=== PATIENT | female | born 1970 | race Caucasian/White ===

== ENCOUNTER 2025-02-07 10:10 | Emergency (ER) | payer MEDICAID, OTHER ==
[~2025-02-07] VITALS: Ht 162.6 cm; Wt 91.0 kg
[2025-02-07 10:12] VITALS: BP 156/108; PULSE 91; RESP 18; TEMP 97.1; O2SAT 95
== END 2025-02-07 12:35 | disposition left against medical advice (07) ==
LOC: ER 10:10
DX: M79.641 Pain in right hand (principal); Z79.899 Other long term (current) drug therapy

== ENCOUNTER 2025-02-12 19:22 | Emergency (ER) | payer MEDICAID ==
[~2025-02-12] VITALS: Ht 162.6 cm; Wt 92.1 kg
[2025-02-12 19:25] VITALS: BP 152/85; PULSE 82; RESP 18; TEMP 98.8; O2SAT 95
--- NOTE | 2025-02-12 20:20 | ED.PDOC ---
Musculoskeletal HPI Comments This is a 54 year old female presenting to the ED with chief complaint of wrist pain and swelling. Patient reports that she has been experiencing right sided wrist pain and swelling that radiates up to her forearm for the past 2 weeks. Patient relays that she had received antibiotics from urgent care due to suspected cellulitis, but no relief had been noted since then. Patient states that she has been homeless in her car for the past month. Patient denies any injury, fall, numbness, weakness, or tingling. Chief Complaint: Upper Extremity Time Seen by MD: 20:17 Reviewed Notes: Nurses Notes, Medications, Allergies Allergies: Coded Allergies: Lisinopril (Verified Allergy, Unknown, 02/07/25) Penicillins (Verified Allergy, Unknown, 02/07/25) Uncoded Allergies: TDAP (Allergy, Unknown, 02/07/25) Information Source: Patient Mode of Arrival: Ambulatory Location: Right Extremity Location: Wrist Timing: Weeks Prehospital treatment: None Severity: Moderate Able to Move Extremity: Yes Pain: Moderate Mechanism: Spontaneous Circumstances: Spontaneous Onset of Symptoms: Spontaneous Symptoms: Swelling, Pain DVT Risk Factors: NONE Past Medical History PAST MEDICAL HISTORY: Denies Surgical History: Denies all surgeries 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 History Family History Family History: Reviewed,noncontributory to illness Social History Smoker: Non-Smoker Alcohol: Denies ETOH Use Drugs: Denies Drug Use Lives In: Home Constitutional: denies: chills, diaphoresis, fatigue, fever, malaise, sweats, weakness, others EENTM: denies: blurred vision, double vision, ear bleeding, ear discharge, ear drainage, ear pain, ear ringing, eye pain, eye redness, hearing loss, mouth pain, mouth swelling, nasal discharge, nose bleeding, nose congestion, nose pain, photophobia, tearing, throat pain, throat swelling, voice changes, others Respiratory: denies: cough, hemoptysis, orthopnea, SOB at rest, shortness of breath, SOB with excertion, stridor, wheezing, others Cardiovascular: denies: chest pain, dizzy spells, diaphoresis, Dyspnea on exertion, edema, irregular heart beat, left arm pain, lightheadedness, palpitations, PND, syncope, others Gastrointestinal: denies: abdomen distended, abdominal pain, blood streaked bowels, constipated, diarrhea, dysphagia, difficulty swallowing, hematemesis, melena, nausea, poor appetite, poor fluid intake, rectal bleeding, rectal pain, vomiting, others Genitourinary: denies: abnormal vagina bleeding, burning, dyspareunia, dysuria, flank pain, frequency, hematuria, incontinence, pain, , vagina discharge, urgency, others Neurological: denies: dizziness, fainting, headache, left sided numbness, left sided weakness, numbness, paresthesia, pre-existing deficit, right sided numbness, right sided weakness, seizure, speech problems, tingling, tremors, weakness, others Musculoskeletal: reports: others (Rt wrist pain and swelling); denies: back pain, gout, joint pain, joint swelling, muscle pain, muscle stiffness, neck pain Integumetry: denies: bruises, change in color, change in hair/nails, dryness, laceration, lesions, lumps, rash, wounds, others Allergic/Immunocompromised: denies: Difficulty Healing, Frequent Infections, Hives, Itching, others Hematologic/Lymphatic: denies: anemia, blood clots, easy bleeding, easy bruising, swollen glands, others Endocrine: denies: excessive hunger, excessive sweating, excessive thirst, excessive urination, flushing, intolerance to cold, intolerance to heat, unexplained weight gain, unexplained weight loss, others Psychiatric: denies: anxiety, bipolar disorder, depression, hopeless, panic disorder, schizophrenia, sleepless, suicidal, others All Other Systems: Reviewed and Negative Physical Exam General Appearance: No Apparent Distress, Normal HEENT: Normal ENT Inspection, Pharynx Normal, TMs Normal Neck: Full Range of Motion, Non-Tender, Normal, Normal Inspection Respiratory: Chest Non-Tender, Lungs Clear, No Accessory Muscle Use, No Respiratory Distress, Normal Breath Sounds Cardiovascular: No Edema, No JVD, No Murmur, No Gallop, Normal Peripheral Pulses, Regular Rate/Rhythm Breast Exam: Deferred Gastrointestinal: No Organomegaly, Non Tender, No Pulsatile Mass, Normal Bowel Sounds, Soft Genitalia: Deferred Pelvic: Deferred Rectal: Deferred Extremities: No calf tenderness, Normal capillary refill, No pedal edema, Other (Swelling to top of right wrist with limited ROM due to pain.) Musculoskeletal : Apperance: Normal Neurologic: Alert, pie topper II-XII nml as Tested, No Motor Deficits, Normal Affect, Normal Mood, No Sensory Deficits Cerebellar Function: Normal Reflexes: Normal Skin: Dry, Normal Color, Warm Lymphatic: No Adenopathy Was a procedure done? Was a procedure done?: No Differential Diagnosis EXT Differential Diagnosis: Fracture, Sprain, Dislocation X-Ray, Labs, Meds, VS Vital Signs Date Time Temp Pulse Resp B/P (MAP) Pulse Ox O2 Delivery O2 Flow Rate FiO2 02/12/25 19:25 98.8 82 18 152/85 95 98.8 X-Ray, Labs, Meds, VS Comment Imaging was reviewed by this provider, there is no obvious pathological or acute disease process. Pending radiology review Labs were reviewed by this provider, no abnormalities Vital signs reviewed by this provider, clinically stable Time of 1ST Reevaluation: 21:15 Reevaluation 1ST: Unchanged Patient Education/Counseling: Diagnosis, Treatment, Need For Follow Up (Follow up with PCP for next available appointment. Return to the emergency department if symptoms worsen.) Family Education/Counseling: No Family Present Departure 1 Departure Time of Disposition: 21:27 Impression: Primary Impression: Arthritis of right wrist Disposition: HOME / SELF CARE / HOMELESS Condition: Stable e-Prescriptions Diclofenac Potassium (Diclofenac Potassium) 50 Mg Tab 1 TAB PO BID, #60 TAB 1 Refill Prov: VENITA TAI 02/12/25 Methylprednisolone (Medrol Dosepak) 4 Mg Carlos 4 MG PO UD, #21 TAB UAD Prov: VENITA TAI 02/12/25 Discharged With: Self Critical Care Note Critical Care Time?: No Stability Stability form required: No Heart Score Heart Score: Heart Score Response (Comments) Value History N/A 0 EKG N/A 0 Age N/A 0 Risk Factors N/A 0 Troponin N/A 0 Total 0 I personally scribed for VENITA TAI ([email or web address]) on 02/12/25 at 20:20. Electronically submitted by Bogdan Sorto ([email or web address]). VENITA TAI Feb 12, 2025 20:20
[2025-02-12] MEDS ORDERED: methylPREDNISolone SOD SUCC 125 MG/2 ML VL IM ONE (20:45)
[2025-02-12] MEDS ORDERED: KETOROLAC TROMETH 30 MG/ML 1ML VIAL IM ONE (20:45)
--- NOTE | 2025-02-12 21:15 | DVH ---
CLINICAL HISTORY: Right wrist pain TECHNIQUE: 3 views of the right wrist were obtained. WID: COMPARISON: None FINDINGS: Normal mineralization and alignment. Mild 1st CMC joint osteoarthritis. Mild triscaphe joint osteoarthritis. There is a cortical offset in the dorsal aspect of the distal radius on lateral projection. Mild soft tissue swelling about the distal right forearm. IMPRESSION: 1. Cortical offset in the dorsal aspect of the distal radius seen on lateral projection. 2. Mild soft tissue swelling about the distal right forearm. 3. Mild 1st CMC joint osteoarthritis. Mild triscaphe joint osteoarthritis.
[2025-02-12] MEDS ORDERED: DICL50TA2 PO (21:27)
[2025-02-12] MEDS ORDERED: METH4PAK PO (21:27)
== END 2025-02-12 21:32 | disposition home or self-care (01) ==
LOC: ER 19:22
DX: M19.031 Primary osteoarthritis, right wrist (principal); Z88.8 Allergy status to other drugs, medicaments and biological substances; Z88.7 Allergy status to serum and vaccine; Z88.0 Allergy status to penicillin
CPT/HCPCS: 73110; J1885

== ENCOUNTER 2025-02-14 09:37 | Emergency (ER) | payer MEDICAID ==
[~2025-02-14] VITALS: Ht 162.6 cm; Wt 92.4 kg
[~2025-02-14 09:37] MED LIST: DICL50TA2 PO; METH4PAK PO
[2025-02-14 09:39] VITALS: BP 160/96; PULSE 72; RESP 18; TEMP 97.9; O2SAT 96
[2025-02-14] MEDS ORDERED: METH4PAK PO (11:01)
[2025-02-14] MEDS ORDERED: TRAM-626 PO (11:02)
--- NOTE | 2025-02-14 11:02 | ED.PDOC ---
Musculoskeletal HPI Comments A 54 YEAR OLD FEMALE PRESENTS TO THE ED WITH COMPLAINT OF RIGHT WRIST PAIN. PATIENT REPORTS THAT SHE HAS BEEN EXPERIENCING RIGHT WRIST PAIN WITH ASSOCIATED SWELLING AND WARMTH FOR THE PAST 2 WEEKS. PATIENT RELAYS THAT SHE IS UNSURE IF SHE INJURED HER RIGHT WRIST. 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 PATIENT DENIES FEVER, CHILLS, SHORTNESS OF BREATH, CHEST PAIN, ABDOMINAL PAIN, NAUSEA, VOMITING, HEADACHE, OR OTHER COMPLAINTS. NO OTHER SYMPTOMS OR MODIFYING FACTORS AT THIS TIME. PATIENT IS ALERT, ORIENTED X 4, AND HAS STEADY GAIT. Chief Complaint: Upper Extremity Time Seen by MD: 10:59 Reviewed Notes: Nurses Notes, Medications, Allergies Allergies: Coded Allergies: Lisinopril (Verified Allergy, Unknown, 02/07/25) Penicillins (Verified Allergy, Unknown, 02/07/25) Uncoded Allergies: TDAP (Allergy, Unknown, 02/07/25) Home Meds Active Scripts Tramadol HCl (Tramadol HCl) 50 Mg Tab, 50 MG PO TID, #20 TAB Prov:ROB HARRIS 02/14/25 Methylprednisolone (Medrol Dosepak) 4 Mg Carlos, 4 MG PO UD, #21 TAB UAD Prov:ROB HARRIS 02/14/25 Diclofenac Potassium (Diclofenac Potassium) 50 Mg Tab, 1 TAB PO BID, #60 TAB 1 Refill Prov:VENITA TAI 02/12/25 Information Source: Patient Mode of Arrival: Ambulatory Location: Right Extremity Location: Hand, Wrist Timing: Weeks Prehospital treatment: None Severity: Moderate Able to Move Extremity: Yes Bear Weight: Fully Pain: Moderate Mechanism: Spontaneous Circumstances: Spontaneous Onset of Symptoms: Spontaneous Symptoms: Swelling, Pain, Warmth DVT Risk Factors: NONE Last Tetanus: Unknown Associated signs and symptoms: Wrist pain Past Medical History PAST MEDICAL HISTORY: DM Past Medical History (Other): BIPOLAR Surgical History: Denies all surgeries RADAR REPAIRER History: No Pertinent RADAR REPAIRER History Family History Family History: Reviewed,noncontributory to illness Social History Smoker: Non-Smoker Alcohol: Denies ETOH Use Drugs: Denies Drug Use Lives In: Homeless Constitutional: denies: chills, diaphoresis, fatigue, fever, malaise, sweats, weakness, others EENTM: denies: blurred vision, double vision, ear bleeding, ear discharge, ear drainage, ear pain, ear ringing, eye pain, eye redness, hearing loss, mouth pain, mouth swelling, nasal discharge, nose bleeding, nose congestion, nose pain, photophobia, tearing, throat pain, throat swelling, voice changes, others Respiratory: denies: cough, hemoptysis, orthopnea, SOB at rest, shortness of breath, SOB with excertion, stridor, wheezing, others Cardiovascular: denies: chest pain, dizzy spells, diaphoresis, Dyspnea on exertion, edema, irregular heart beat, left arm pain, lightheadedness, palpitations, PND, syncope, others Gastrointestinal: denies: abdomen distended, abdominal pain, blood streaked bowels, constipated, diarrhea, dysphagia, difficulty swallowing, hematemesis, melena, nausea, poor appetite, poor fluid intake, rectal bleeding, rectal pain, vomiting, others Genitourinary: denies: abnormal vagina bleeding, burning, dyspareunia, dysuria, flank pain, frequency, hematuria, incontinence, pain, , vagina discharge, urgency, others Neurological: denies: dizziness, fainting, headache, left sided numbness, left sided weakness, numbness, paresthesia, pre-existing deficit, right sided numbness, right sided weakness, seizure, speech problems, tingling, tremors, weakness, others Musculoskeletal: reports: joint pain, joint swelling, others (RIGHT WRIST PAIN); denies: back pain, gout, muscle pain, muscle stiffness, neck pain Integumetry: denies: bruises, change in color, change in hair/nails, dryness, laceration, lesions, lumps, rash, wounds, others Allergic/Immunocompromised: denies: Difficulty Healing, Frequent Infections, Hives, Itching, others Hematologic/Lymphatic: denies: anemia, blood clots, easy bleeding, easy bruising, swollen glands, others Endocrine: denies: excessive hunger, excessive sweating, excessive thirst, excessive urination, flushing, intolerance to cold, intolerance to heat, unexplained weight gain, unexplained weight loss, others Psychiatric: denies: anxiety, bipolar disorder, depression, hopeless, panic disorder, schizophrenia, sleepless, suicidal, others All Other Systems: Reviewed and Negative Physical Exam General Appearance: Mild Distress, Obese HEENT: Normal ENT Inspection, PERRL/EOMI, Pharynx Normal, TMs Normal Neck: Full Range of Motion, Non-Tender, Normal, Normal Inspection Respiratory: Chest Non-Tender, Lungs Clear, No Accessory Muscle Use, No Respiratory Distress, Normal Breath Sounds Cardiovascular: No Edema, No JVD, No Murmur, No Gallop, Normal Peripheral Pulses, Regular Rate/Rhythm Breast Exam: Deferred Gastrointestinal: No Organomegaly, Non Tender, No Pulsatile Mass, Normal Bowel Sounds, Soft Genitalia: Deferred Pelvic: Deferred Rectal: Deferred Extremities: No calf tenderness, Normal capillary refill, Normal range of motion, No pedal edema, Swelling (TENDERNESS AND MILD SWELLING ON RIGHT DORSAL WRIST. ), Tender (WITH TWO SMALL GANGLION CYST. ) Musculoskeletal : Apperance: Normal Neurologic: Alert, belt splicer II-XII nml as Tested, No Motor Deficits, Normal Affect, Normal Mood, No Sensory Deficits Cerebellar Function: Normal Reflexes: Normal Skin: Dry, Normal Color, Warm Peripheral Pulses: 2+ carotid (R), 2+ carotid (L), 2+ Radial (R), 2+ Radial (L) Lymphatic: No Adenopathy Was a procedure done? Was a procedure done?: No Differential Diagnosis EXT Differential Diagnosis: Gout, DJD, Arthritis, Bursitis Other Differential Diagnosis GANGLION CYST X-Ray, Labs, Meds, VS Vital Signs Date Time Temp Pulse Resp B/P (MAP) Pulse Ox O2 Delivery O2 Flow Rate FiO2 02/14/25 09:39 97.9 72 18 160/96 96 97.9 Current Medications Medications (Trade) Dose Ordered Sig/Christiano Route Start Time Stop Time Status Last Admin Acetaminophen/ Hydrocodone Bitart (Archbald 5/325MG Tab) 1 tab ONCE ONCE PO 02/14/25 11:00 02/14/25 11:01 DC 02/14/25 11:08 PATIENT: ANNELIESE MARQUEZT: [id number]: [id number] : 1970 LOC: ER ROOM / BED: / AGE / SEX: 54 / F ADM STATUS: REG ER SERVICE 40 ORDERING PHYSICIAN: VENITA TAI PROCEDURE(s): RWRI - R WRIST 3+ VIEW XRAY REASON: pain ORDER NUMBER(s): [id number], ACCESSION NUMBER(s): [id number] CLINICAL HISTORY: Right wrist pain TECHNIQUE: 3 views of the right wrist were obtained. WID: COMPARISON: None FINDINGS: Normal mineralization and alignment. Mild 1st CMC joint osteoarthritis. Mild triscaphe joint osteoarthritis. There is a cortical offset in the dorsal aspect of the distal radius on lateral projection. Mild soft tissue swelling about the distal right forearm. IMPRESSION: 1. Cortical offset in the dorsal aspect of the distal radius seen on lateral projection. 2. Mild soft tissue swelling about the distal right forearm. 3. Mild 1st CMC joint osteoarthritis. Mild triscaphe joint osteoarthritis. ATED BY: DEMETRICE DURAND MD DICTATED DATE/TIME: 02/12/252111 SIGNED BY: DEMETRICE DURAND MD SIGNED DATE/TIME: 02/12/252111 CC: X-Ray, Labs, Meds, VS Comment EXTERNAL MEDICAL RECORDS REVIEWED: [NONE] INDEPENDENT HISTORIANS: [NONE] SOCIAL DETERMINANTS OF HEALTH: [NONE] LABS ORDERED: NONE REVIEWED AND INTERPRETED RESULTS: NONE IMAGING ORDERED: NONE TREATMENTS ORDERED: NORCO 5/325 PO PROCEDURES PERFORMED: NONE CRITICAL CARE TIME: NONE I HAVE DISCUSSED THE PATIENT WITH THE ATTENDING PHYSICIAN DR. PHILIP AND HE AGREES WITH THE PATIENT'S PLAN OF CARE AND DISPOSITION. BASED ON HISTORY OF PRESENT ILLNESS, AND PHYSICAL EXAM, PATIENT WILL BE DISCHARGED HOME. DISCUSSED PLAN FOR DISCHARGE HOME WITH RX: ULTRAM 50MG AND MEDROL DOSE PACK. MEDICATION WARNINGS GIVEN. SHARED DECISION MAKING: DISCUSSED WITH PATIENT THAT THEIR WORKUP WAS NORMAL. PATIENT INSTRUCTED TO FOLLOW UP WITH PRIMARY CARE PROVIDER IN 1-2 DAYS FOR RE- EVALUATION OF SYMPTOMS. PATIENT VERBALIZES UNDERSTANDING TO RETURN TO ED FOR NEW OR WORSENING SYMPTOMS OR IF FOLLOW UP WITH PCP CANNOT BE OBTAINED. PATIENT FEELS COMFORTABLE GOING HOME AT THIS TIME. ALL QUESTIONS ADDRESSED AT TIME OF DISCHARGE. Time of 1ST Reevaluation: 10:55 Reevaluation 1ST: Improved Patient Education/Counseling: Diagnosis, Treatment, Need For Follow Up Family Education/Counseling: Diagnosis, Treatment, Need For Follow Up Medical Screening: No EMC Exist At This Time Departure 1 Departure Time of Disposition: 11:15 Impression: Primary Impression: Ganglion cyst Additional Impression: Degenerative joint disease of right wrist Qualified Codes: M19.031 - Primary osteoarthritis, right wrist Disposition: 01 HOME / SELF CARE / HOMELESS Condition: Stable Additional Instructions: FOLLOW-UP WITH PCP IN 1 TO 2 DAYS. TAKE MEDICATIONS PRESCRIBED. RETURN TO ED FOR ANY NEW OR WORSENING SYMPTOMS. e-Prescriptions Tramadol HCl (Tramadol HCl) 50 Mg Tab 50 MG PO TID, #20 TAB Prov: ROB HARRIS 02/14/25 Methylprednisolone (Medrol Dosepak) 4 Mg Carlos 4 MG PO UD, #21 TAB UAD Prov: ROB HARRIS 02/14/25 Discharged With: Self, Relative Critical Care Note Critical Care Time?: No Stability Stability form required: No Heart Score Heart Score: Heart Score Response (Comments) Value History N/A 0 EKG N/A 0 Age N/A 0 Risk Factors N/A 0 Troponin N/A 0 Total 0 I personally scribed for RBO HARRIS ([email or web address]) on 02/14/25 at 11:02. Electronically submitted by Bogdan Sorto ([email or web address]). I personally scribed for ROB HARRIS ([email or web address]) on 02/14/25 at 11:06. Electronically submitted by Bogdan Sorto ([email or web address]). ROB HARRIS Feb 14, 2025 11:02
[2025-02-14] MEDS: HYDROcodone-ACET 5/325MG TAB PO ONE (11:08)
== END 2025-02-14 11:12 | disposition home or self-care (01) ==
LOC: ER 09:37
DX: M67.40 Ganglion, unspecified site (principal); M19.031 Primary osteoarthritis, right wrist; E11.9 Type 2 diabetes mellitus without complications; F31.9 Bipolar disorder, unspecified; Z79.899 Other long term (current) drug therapy; Z88.8 Allergy status to other drugs, medicaments and biological substances; Z88.7 Allergy status to serum and vaccine; Z88.0 Allergy status to penicillin; Z59.00 Homelessness unspecified